=== PATIENT | male | born 1975 | race Caucasian/White ===

== ENCOUNTER 2024-07-10 16:59 | Emergency (ER) | payer OTHER ==
[~2024-07-10] VITALS: Wt 81.6 kg
[2024-07-10 18:45] LABS: BASO % 0.2 % (0.0-1.0); EOS # 0.1 10*3/uL (0.0-0.4); EOS % 2.4 % (1.0-4.0); HEMATOCRIT 47.5 % (42.0-52.0); LYMPH # 1.4 10*3/uL (1.3-4.4); LYMPH % 25.4 % (27.0-41.0); MEAN CELL VOLUME 88.8 fl (80.0-94.0); MEAN CORPUSCULAR HGB CONC 32.6 g/dl (33.0-37.0); MEAN PLATELET VOLUME 9.3 fl (9.6-12.3); MONO # 0.5 10*3/uL (0.1-1.0); MONO % 9.4 % (3.0-9.0); NEUT # 3.3 10*3/uL (2.3-7.9); NEUT % 62.4 % (47.0-73.0); PLATELET COUNT AUTOMATED 174 10*3/uL (130-400); RED BLOOD COUNT 5.35 10*6/uL (4.50-5.90); RED CELL DISTRI WIDTH 12.4 % (0-14.5); WHITE BLOOD COUNT 5.3 10*3/uL (4.8-10.8)
[2024-07-10 18:57] LABS: BILIRUBIN Negative (Negative); BLOOD Negative (Negative); CLARITY Clear (Clear); COLOR Dark Yellow (Yellow); GLUCOSE Negative (Negative); KETONE Trace (Negative); LEUKO ESTERASE 1+ (Negative); NITRITE Negative (Negative); PH 6.5 (4.5-8.0); SPECIFIC GRAVITY 1.025 (1.001-1.030)
[2024-07-10] MEDS ORDERED: BENZTROPINE ME0.5 MG PO (19:04)
[2024-07-10 19:06] LABS: URINE AMPHETAMINES Negative (1000ng/ml); URINE BARBITURATES Negative (200ng/ml); URINE BENZODIAZEPINES Negative (200ng/ml); URINE CANNABINOIDS (THC) Negative (50ng/ml); URINE COCAINE Negative (300ng/ml); URINE METHADONE Negative (300ng/ml); URINE OPIATES Negative (300ng/ml); URINE PHENCYCLIDINE Negative (25ng/ml)
[2024-07-10] MEDS ORDERED: BUPROPION HYDR150 M1 PO (19:08)
[2024-07-10 19:09] LABS: ALKALINE PHOSPHATASE 65 U/L (46-116); BUN 12 mg/dl (9-23); CHLORIDE 104 mmol/L (98-107); CPK 58 U/L (34-171); POTASSIUM 3.8 mmol/L (3.4-5.1); SGPT/ALT 18 U/L (5-49); TOTAL PROTEIN 6.7 gm/dL (6.0-8.0)
[2024-07-10] MEDS ORDERED: CELECOXIB100 M1 PO (19:09)
[2024-07-10] MEDS ORDERED: MELOXICAM15 MG PO (19:09)
[2024-07-10] MEDS ORDERED: ESOMEPRAZOLE MA40 M1 PO (19:10)
[2024-07-10 19:20] LABS: BACTERIA 1+; MUCOUS 1+
[2024-07-10] MEDS ORDERED: OLANZAPINE5 MG PO (19:27)
[2024-07-10] MEDS ORDERED: PALIPERIDONE ER3 MG PO (19:28)
[2024-07-10] MEDS ORDERED: POTASSIUM99 M7 PO (19:29)
[2024-07-10] MEDS ORDERED: B COMPLEX1 EACH PO (19:30)
[2024-07-10] MEDS ORDERED: TOPAMAX25 M3 PO (19:30)
[2024-07-10] MEDS ORDERED: VITAMIN D325 MCG PO (19:31)
[2024-07-10] MEDS ORDERED: SODIUM CHLORIDE 0.9% 1,000 ML IV ONE (19:50)
[2024-07-10] MEDS ORDERED: Ceftriaxone Sodium 1 GM/10 ML SYR IV ONE (19:55)
[2024-07-10] MEDS ORDERED: OMNICEF300 MG PO (20:53)
== END 2024-07-10 21:02 | disposition home or self-care (01) ==
LOC: ED 16:59
PROVIDERS: Nurse Practitioner Family
DX: F43.22 Adjustment disorder with anxiety (principal); Z20.822 Contact with and (suspected) exposure to COVID-19; N39.0 Urinary tract infection, site not specified; F31.9 Bipolar disorder, unspecified; Z91.030 Bee allergy status; Z91.048 Other nonmedicinal substance allergy status; Z91.040 Latex allergy status; Z98.890 Other specified postprocedural states; Z79.899 Other long term (current) drug therapy